=== PATIENT | female | born 1945 ===

== ENCOUNTER 2022-05-07 07:00 | Inpatient (IN) | payer OTHER ==
[~2022-05-07] VITALS: Ht 152.4 cm; Wt 74.8 kg
[2022-05-07] MEDS ORDERED: SIMVASTATIN (08:20)
[2022-05-07] MEDS ORDERED: ZESTRIL10 M1 PO (08:20)
[2022-05-07] MEDS ORDERED: METFORMIN HCL500 M2 PO (08:21)
[2022-05-11] MEDS ORDERED: HYDROCHLOROTHIA25 MG (09:25)
[2022-05-11] MEDS ORDERED: SIMVASTATIN20 MG (09:25)
[2022-05-13] MEDS ORDERED: OXYC1TAB9 PO (06:37)
[2022-05-13] MEDS ORDERED: BACTRIM DS TAB1 EACH PO (06:37)
[2022-05-13] MEDS ORDERED: INTEGRA PLUS C1 EACH PO (06:37)
[2022-05-13] MEDS ORDERED: XARELTO10 MG PO (06:37)
[2022-05-14] MEDS ORDERED: PERCOCET 5-3251 EACH PO (07:12)
== END 2022-05-14 19:06 | disposition home or self-care (01) | DRG 470 ==
LOC: SURG 05-11 07:00 → O/R 05-11 07:02 → SURH 05-11 07:02 → SURG 05-11 10:15 → SURH 05-11 16:21
PROVIDERS: ADMIT Orthopaedic Surgery Sports Medicine; ATTEND Orthopaedic Surgery Sports Medicine
PROC: 0SR903Z Replacement of Right Hip Joint with Ceramic Synthetic Substitute, Open Approach (ICD-10-PCS; principal; 2022-05-11 10:15)
DX: M16.11 Unilateral primary osteoarthritis, right hip (principal); I10 Essential (primary) hypertension; E11.9 Type 2 diabetes mellitus without complications; E78.5 Hyperlipidemia, unspecified